=== PATIENT | female | born 1955 | race Caucasian/White ===

== ENCOUNTER → 2017-10-02 09:06 | Outpatient (CLI) | payer OTHER, SELFPAY ==
[2017-10-02 10:08] LABS: Alanine Aminotransferase 36 IU/L (9-52); Albumin 4.4 g/dL (3.5-5.0); Albumin Globulin Ratio 1.4 (1.0-2.8); Alkaline Phosphatase 73 U/L (38-126); Aspartate Aminotransferase 36 IU/L (14-36); BUN Creatinine Ratio 14.3 (6-22); Bilirubin Total 0.7 mg/dL (0.2-1.3); Blood Urea Nitrogen 10 mg/dL (7-17); Calcium 9.7 mg/dL (8.4-10.2); Carbon Dioxide 31 mmol/L (22-32); Chloride 100 mmol/L (98-107); Cholesterol 191 mg/dL (140-199); Estimated Glomerular Filt Rate > 60.0 mL/min (>60); Globulin 3.1 g/dL (1.7-4.1); Glucose 104 mg/dL (80-110); HDL Cholesterol 75 mg/dL (40-60); HEMOLYSIS < 15 (0-50); LDL Cholesterol Calculated 105 mg/dL (<100); Potassium 4.1 mmol/L (3.4-5.1); Sodium 139 mmol/L (137-145); Total Protein 7.5 g/dL (6.3-8.2); Triglycerides 57 mg/dL (35-150)
[2017-10-02 10:29] LABS: Creatinine Urine Random 71.5 mg/dL
[2017-10-02 10:38] LABS: Microalbumi Creatinin Ratio Ur 8.3 ug/mg CR (<30); Microalbumin Urine Random < 0.6 mg/dL (0-1.6)
[2017-10-02 10:59] LABS: Thyroid Stimulating Hormone 0.71 uIU/mL (0.47-4.68)
== END ==
PROVIDERS: PCP Physician Assistant; Visit Provider Physician Assistant
DX: I10 Essential (primary) hypertension (principal); E03.9 Hypothyroidism, unspecified
CPT/HCPCS: 36415; 80053; 80061; 82043; 82570; 84443

== ENCOUNTER → 2018-10-15 14:25 | Outpatient (CLI) | payer MEDICARE, OTHER, SELFPAY ==
--- NOTE | 2018-10-15 14:28 | DI.RAD.S_ITS ---
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 COMPARISON: [facility], CHEST 1 VIEW, 07/24/2016, 19:42. [facility], CHEST 1 VIEW, 03/07/2016, 14:26. FINDINGS: Surgical changes and devices: None. Lungs and pleura: Lungs are clear. No pleural effusions or pneumothorax. Mediastinum: Mediastinal contours are normal. Heart size is normal. Bones and chest wall: No suspicious bony abnormalities. Soft tissues appear unremarkable. IMPRESSION: Normal for age, source of current positive PPD test is not found. Dictated by: Stephen Ariza M.D. on 10/15/2018 at 16:32 Approved by: Stephen Ariza M.D. on 10/15/2018 at 16:33
[2018-10-19 14:50] LABS: Hepatitis B Surf Ab Qualitativ Nonreactive (Nonreactive)
[2018-10-20 10:29] LABS: Medtox DOT Urine Drug Screen See Separate Report
== END ==
PROVIDERS: PCP Physician Assistant; Visit Provider Registered Nurse
DX: R76.11 Nonspecific reaction to tuberculin skin test without active tuberculosis (principal); Z01.84 Encounter for antibody response examination; Z02.1 Encounter for pre-employment examination
CPT/HCPCS: 36415; 71046; 81099; 86706; 86787

== ENCOUNTER 2018-10-29 14:10 | Day surgery (SDC) | payer MEDICARE, OTHER, SELFPAY ==
--- NOTE | 2018-10-11 07:23 | PM.PREOP ---
Pre-operative Note Interval Note History & Physical reviewed/Exam performed by Physician: Yes Changes to H&P: No ASA Class (for procedural sedation): II
--- NOTE | 2018-10-29 | PATH_ITS ---
[facility] Accession Number: [id number] . 01 Material submitted: . colon - CECAL POLYP . 02 Diagnosis: Cecal Polyp: Multiple (approximately four) portions of tubular adenoma; negative for high-grade dysplasia. [facility]/11/01/2018 . 02 Electronically signed: . Maryann Charlton MD, Pathologist NPI- [id number] . 01 Gross description: . CECAL POLYP: Received in formalin are multiple fragment(s) of jiménez, soft tissue measuring 0.8 x 0.6 x 0.3 cm in aggregate submitted entirely in 1 cassette(s) /CKI /CKI . 02 Pathologist provided ICD-10: K63.5 . 02 CPT . 983517 Performed at: 01 [facility] [address] [place] [address], [place], [place] [id number] MD John Barcenas MD Phone: [phone] Performed at: 02 [facility] [address] [place], [place] [id number] MD Wanda Ortez MD Phone: [phone]
[2018-10-29 14:23] VITALS: BP 138/92; PULSE 88; RESP 16; TEMP 36.7; O2SAT 97; BMI 35.9
[2018-10-29] MEDS: SODIUM CHLORIDE 0.9% 1,000 ML 200 ML IV (14:37)
--- NOTE | 2018-10-29 14:54 | PM.HP.1 ---
History of Present Illness Date Patient Seen: 10/29/18 Time Patient Seen: 14:54 Chief complaint: [id number] Narrative: Patient is here for a screening colonoscopy had a prior colonoscopy 10 years ago finding no polyps. She is asymptomatic. Has no melena no hematochezia. Patient History Medical History Chronic anal fissure (Acute) Hemorrhoids (Acute) HTN (hypertension) (Chronic) Breast cancer (Resolved) Surgical History History of colonoscopy (Acute) History of total right knee replacement (TKR) (Resolved) Hx of mastectomy (Resolved) Family History Mother Hypertension Heart disease Cancer Brother Hypertension Father Cancer Social History marital status: household members: spouse occupational status: employed Smoking Status: Never smoker second hand exposure: No alcohol intake: current substance use type: does not use Family & Social History Family History Mother Hypertension Heart disease Cancer Brother Hypertension Father Cancer Social History: household members spouse Tobacco & Substance use: Smoking Status Never smoker alcohol intake current Meds Home Medications Medication Instructions Recorded Confirmed Type calcium carbonate [Tums] 100 mg PO QDAYP PRN #0 02/11/16 10/29/18 History hydrochlorothiazide 25 mg PO QDAY #90 tab 04/07/17 10/29/18 Rx Omeprazole delayed release 40 mg PO PRN 10/28/17 10/15/18 History enalapril maleate 20 mg tablet 20 mg PO DAILY #90 tab 12/24/17 10/29/18 Rx Allergies Allergy/AdvReac Type Severity Reaction Status Date / Time lisinopril AdvReac Intermediate Cough and Verified 10/15/18 13:51 hair loss losartan AdvReac Mild ringing in Verified 10/15/18 13:51 ears Review of Systems Review of Systems All systems reviewed & are unremarkable except as noted in HPI and below Exam Vital Signs (past 8 hours): - 10/29/18 14:23 Temperature 98.0 F Pulse Rate 88 Respiratory Rate 16 Blood Pressure 138/92 H Pulse Oximetry 97 Oxygen Delivery Method Room Air Narrative Exam Narrative: Patient is alert and oriented Lungs are clear with no rales or wheezes Has surgical absence of left breast. Heart regular rhythm no murmur Abdomen soft no organomegaly no tenderness Rectal to be done at time of colonoscopy Assessment & Plan Assessment & Plan narrative: Patient has had a prior colonoscopy. She had no polyps then. She is asymptomatic. She understands the nature of the procedure to be done with the risks of bleeding and infection and perforation. She gives consent and has no questions that were not answered.
[2018-10-29] MEDS: fentaNYL 250 MCG/5 ML INJ IV (15:14)
[2018-10-29] MEDS: MIDAZOLAM 5 MG/5 ML VIAL IV (15:15)
--- NOTE | 2018-10-29 15:20 | PM.OP.ENDO ---
Operative Date/Time/Diagnoses Date of procedure: 10/29/18 Time of procedure: 15:20 Pre-op diagnosis: Screening colonoscopy Post-op diagnosis: other (1 cm cecal polyp removed with a cold snare) Procedure & Clinicians Study performed: Total colonoscopy to the cecum with cecal polypectomy Same procedure as scheduled: Yes Surgeon: Daryl Enriquez Procedure Notes SCOAP/Timeout: Was done Procedure in detail: The patient was properly identified during surgical pause. She was given a total of 3.5 mg of Versed and 150 micro g of fentanyl the throughout the procedure which was well-tolerated. The flexible fiberoptic colonoscope inserted transanally to the cecum. She had 1 polyp identified which was in the cecum a 1 cm pedunculated polyp removed with a cold snare and submitted for histology. There was minimal bleeding from that polypectomy. The procedure was very well tolerated. Scope withdrawal time: 9 Sedation minutes: 18 Findings: polyp Specimen(s): other (Cecal polyp was submitted) Complications: none Recommendations: Colonscopy in 3 years Disposition: PACU
[2018-10-29 15:25] VITALS: BP 118/79; PULSE 88; RESP 12; TEMP 36.7; O2SAT 97
[2018-10-29 15:45] VITALS: BP 124/77; PULSE 81; RESP 12; O2SAT 97
--- NOTE | 2018-10-29 15:49 | SUR.PHASEII ---
Pt arrived from [facility]. VS stable. Juice provided.
== END 2018-10-29 16:06 | disposition home or self-care (01) ==
PROVIDERS: PCP Physician Assistant; Visit Provider Surgery
PROC: 0DJD8ZZ Inspection of Lower Intestinal Tract, Via Natural or Artificial Opening Endoscopic (ICD-10-PCS; CPT 45378; principal; 2018-10-29 15:15)
DX: Z12.11 Encounter for screening for malignant neoplasm of colon (principal); D12.0 Benign neoplasm of cecum; I10 Essential (primary) hypertension; Z85.3 Personal history of malignant neoplasm of breast
CPT/HCPCS: 45385; 88305; 99152; J2250; J3010